=== PATIENT | male | born 1965 | race Caucasian/White ===

== ENCOUNTER 2020-11-06 09:54 | Inpatient (IN) | payer OTHER ==
[2020-11-06] VITALS (66 sets, daily range): BP systolic 49–161; BP diastolic 15–114
[~2020-11-06] VITALS: Ht 177.8 cm; Wt 129.0 kg
[2020-11-06 10:24] LABS: BE(vivo) -5.4 mmol/L (-2 to +3); HCO3 25.5 mmol/L (22.0-26.0); PCO2 74.6 mmHg (35.0-45.0); PO2 93.6 mmHg (80.0-100.0); pH 7.152 (7.360-7.450); sO2 94.6 % (92.0-98.0)
[2020-11-06 10:35] LABS: HEMOGLOBIN 15.1 gm/dL (14.0-18.0)
[2020-11-06 10:37] LABS: MCHC 31.4 g/dL (28.0-37.0); MCV 92.6 fL (80.0-100.0); RBC 5.19 mil/uL (4.50-6.00); RDW 16.6 % (10.5-14.5); WBC 4.1 thou/uL (4.0-11.0)
[2020-11-06 11:10] LABS: ANION GAP 17 mmol/L (7-16); BUN 34 mg/dL (7-18); CALCIUM 10.7 mg/dL (8.5-10.1); CHLORIDE 103 mmol/L (98-107); CO2 24 mmol/L (21-32); CREATININE 2.6 mg/dL (0.7-1.3); GLUCOSE 239 mg/dL (74-106); POTASSIUM 4.6 mmol/L (3.5-5.1); SODIUM 144 mmol/L (136-145)
[2020-11-06 11:20] LABS: ALBUMIN 1.5 g/dL (3.4-5.0); SGOT 1431 U/L (15-37); SGPT 815 U/L (16-63); TOTAL BILIRUBIN 1.5 mg/dL (0.2-1.0); TOTAL PROTEIN 5.6 g/dL (6.4-8.2); TROPONIN-I <0.06 ng/mL (<0.06)
[2020-11-06 11:28] LABS: ABSOLUTE NEUTROPHILS 0.3 thou/uL (1.4-8.2); METAMYELOCYTES 1 %; NUCLEATED RBCS 8 /100WBC; PLATELET COUNT 273 thou/uL (150-400)
[2020-11-06 11:29] LABS: PLATELET ESTIMATE NORMAL
--- NOTE | 2020-11-06 12:42 | EKG ---
[place] [address] [address] [employer] [facility] [place] [address] ELECTROCARDIOGRAM REPORT Name: ERIKA RUBIO Room #: 243-P ADM IN M.R.#: [id number] Admission: 11/06/20 Attend Phys: Polo Guevara MD Discharge: Date of : 63 Report #: [id number] [facility] ED Test Date: 2020-11-06 Test Time: 10:55:14 Pat Name: ERIKA RUBIO Department: Room: [facility] Gender: M Apron Man: NAVEEN : 1965 Requested By: Hadley Taylor Order Number: [id number] MD: Abbe Roberts Measurements Intervals [place] Rate: 107 P: [place]: QRS: -49 QRSD: 121 T: 75 QT: 332 QTc: 443 Interpretive Statements Atrial fibrillation Ventricular premature complex Nonspecific IVCD with LAD Inferior infarct, old Consider anterior infarct No previous ECG available for comparison Electronically Signed On 11-06-2020 12:42:19 [employer]PERVISOR [employer] ROOM by Abbe Roberts [email or web address] <ELECTRONICALLY SIGNED> By: Abbe Roberts MD, [facility] 11/06/20 1242 1055 1055 Abbe Robrets MD, FACC /EPI
--- NOTE | 2020-11-06 13:31 | NUR ---
1230 PATIENT ARRIVED FROM THE ED WITH 2 NURSES, ON LEVOPHED AND EPI DRIPS, ANGONAL RESPIRATIONS. 1233 CODE BLUE CALLED. PEA AND NO PULSE OBTAINED. SEE CODE BLUE SHEET
[2020-11-06 13:33] LABS: RBC 4.63 mil/uL (4.50-6.00)
[2020-11-06 13:35] LABS: MCH 28.3 pg (26.0-34.0); MCHC 28.5 g/dL (28.0-37.0); RDW 17.5 % (10.5-14.5); WBC 11.5 thou/uL (4.0-11.0)
[2020-11-06 13:42] LABS: HEMOGLOBIN 13.1 gm/dL (14.0-18.0); MCV 99.3 fL (80.0-100.0)
--- NOTE | 2020-11-06 14:00 | NUR ---
DR DAVILA AT BEDSIDE, ORDERS NOTED. NS INFUSING WIDE OPEN. LEVOPHED AND EPI ARE MAXED OUT. VASOPRESSIN ADDED AND WILL START BEVERLY WHEN IT ARRIVES. DAUGHTER AND SON ARE AT THE BEDSIDE AND UPDATED TO THEIR FATHER'S STATUS. WILL CONTINUE TO MONITOR.
[2020-11-06 15:27] LABS: CALCIUM 7.7 mg/dL (8.5-10.1); CREATININE 2.9 mg/dL (0.7-1.3); POTASSIUM 5.4 mmol/L (3.5-5.1)
[2020-11-06 15:38] LABS: ALBUMIN 0.9 g/dL (3.4-5.0); TOTAL BILIRUBIN 1.4 mg/dL (0.2-1.0); TOTAL PROTEIN 4.1 g/dL (6.4-8.2)
--- NOTE | 2020-11-06 15:45 | NUR ---
PATIENT REMAINS UNSTABE AND VERY LIABLE IF PRESSORS ALARM. BEVERLY TITRATED. LOWER EXTERMITIES REMAIN MOTTLED WITH CAP REFILL OF [address] AHMADI IN TO EXAMINE PATIENT.
--- NOTE | 2020-11-06 16:30 | NUR ---
DR DORADO IN TO SEE PATIENT.
--- NOTE | 2020-11-06 19:30 | NUR ---
PATIENT REMAINS CRITICAL AND NOT PROGRESSING TOWARDS OUTCOME GOALS. DAUGHTER ALEX CALLED IN AT 1900 AND UPDATED ON HER FATHER'S STATUS. WILL CONTINUE TO MONITOR.
[2020-11-06 21:09] LABS: BE(vivo) -28.7 mmol/L (-2 to +3); HCO3 7.6 mmol/L (22.0-26.0); PCO2 58.4 mmHg (35.0-45.0); PO2 82.2 mmHg (80.0-100.0); sO2 78.7 % (92.0-98.0)
[2020-11-06 21:13] LABS: pH 6.733 (7.360-7.450)
[2020-11-07 00:15] VITALS: BP 79/34
[2020-11-07 00:31] VITALS: BP 81/41
--- NOTE | 2020-11-07 04:38 | NUR ---
[facility] PT UNRESPONSIVE, NO MOVEMENT TO PAINFUL STIMULI, NO REFLEXES NOTED, MOTTLED FROM TOES TO UPPER ABDOMEN, WITH EARS DUSKY. EPI, VASOPRESSION, LEVOPHED, AND NEOSYNEOPHRINE INFUSING AT MAX RATE. REMAINS HYPOTENSIVE. NO ASSIST OF VENT-FI02 100%. BICARB GTT STARTED AFTER CALLING CRITICAL RESULTS TO DR AHMADI. NO URINE OUTPUT. UPDATE GIVEN TO REFRIGERATOR TESTER HOSPITALIST,
--- NOTE | 2020-11-07 04:45 | NUR ---
UPDATED HOSPITALIST AND SPOKE WITH DR AHMADI WELL ON PATIENT STATUS, UNABLE TO OBTAIN CUFF PRESSURE -HAS PALPATABLE FEMEROL AND CAROTID PULSE. ORDERED DOPAMINE TO ADDITONAL PRESSURES. BEFORE ABLE TO GET STARTED PT BECAME PULSELESS, ANG EISENBERG CALLED. SEE CODE BLUE SHEET.
--- NOTE | 2020-11-07 07:43 | NUR ---
ADAMARIS IN MICRO CALLS POSITIVE BC TO THIS ICE CREAM FREEZER. WILL UPDATED INFECTION CONTROL NURSE. POSITIVE BC GRAM + COCCI IN CLUSTERS
--- NOTE | 2020-11-07 13:51 | EKG ---
[address] [address] ELECTROCARDIOGRAM REPORT Name: ERIKA RUBIO Room #: 243-[facility] IN M.R.#: [id number] Admission: 11/06/20 Attend Phys: Polo Guevara MD Discharge: 11/07/20 Date of : 63 Report #: [id number] [facility] ED Test Date: 2020-11-06 Test Time: 09:57:03 Pat Name: ERIKA RUBIO Department: Room: 243 Gender: M Scrape Gatherer: ALEX : 1965 Requested By: Polo Guevara Order Number: [id number] MD: Abbe Roberts Measurements Intervals [place] Rate: 80 P: [place]: QRS: 63 QRSD: 81 T: 84 QT: 425 QTc: 491 Interpretive Statements Atrial fibrillation Paired ventricular premature complexes Aberrant conduction of SV complex(es) Low voltage, extremity and precordial leads Borderline repolarization abnormality Minimal ST elevation, inferior leads Borderline prolonged QT interval Baseline wander in lead(s) V5,V6 No previous ECG available for comparison Electronically Signed On 11-07-2020 13:50:54 [employer]NAGER by Abbe Roberts [email or web address] <ELECTRONICALLY SIGNED> By: Abbe Roberts MD, FAC 11/07/20 1350 0957 0957 Abbe Roberts MD, [facility] /EPI
== END 2020-11-07 01:54 | DRG 871 ==
LOC: ER 09:54 → EROBS 12:04 → ICU 12:35
PROVIDERS: Emergency Medicine; ADMIT Hospitalist; ATTEND Hospitalist
DX: A41.9 Sepsis, unspecified organism (principal); K65.8 Other peritonitis; K72.00 Acute and subacute hepatic failure without coma; E43 Unspecified severe protein-calorie malnutrition; R65.21 Severe sepsis with septic shock; J96.90 Respiratory failure, unspecified, unspecified whether with hypoxia or hypercapnia; N17.0 Acute kidney failure with tubular necrosis; G93.41 Metabolic encephalopathy; G93.1 Anoxic brain damage, not elsewhere classified; K94.23 Gastrostomy malfunction; E11.9 Type 2 diabetes mellitus without complications; I10 Essential (primary) hypertension; E78.5 Hyperlipidemia, unspecified; J44.9 Chronic obstructive pulmonary disease, unspecified; F17.210 Nicotine dependence, cigarettes, uncomplicated; Z79.899 Other long term (current) drug therapy; Z20.822 Contact with and (suspected) exposure to COVID-19
CPT/HCPCS: 10078